=== PATIENT | male | born 1940 | race Caucasian/White ===

== ENCOUNTER → 2017-03-25 | Outpatient (CLI) | payer MEDICARE, OTHER | END | disposition home or self-care (01) | LOC: LAB.O 14:06 | PROVIDERS: ATTEND Orthopaedic Surgery | DX: M25.551 Pain in right hip (principal); M16.11 Unilateral primary osteoarthritis, right hip; Z01.812 Encounter for preprocedural laboratory examination; Z96.642 Presence of left artificial hip joint ==

== ENCOUNTER → 2017-07-18 | Outpatient (CLI) | payer MEDICARE, OTHER | END | disposition home or self-care (01) | LOC: GMAJ 19:38 | PROVIDERS: ATTEND Family Medicine | DX: Z12.5 Encounter for screening for malignant neoplasm of prostate (principal) ==

== ENCOUNTER 2017-08-01 08:33 | Emergency (ER) | payer MEDICARE, OTHER ==
--- NOTE | 2017-08-01 08:45 | ED.PDOC ---
History of Present Illness - General Chief Complaint: Chest Pain/MT Stated Complaint: CHEST PAIN Time Seen by Provider: 08/01/17 08:39 Source: patient Exam Limitations: no limitations Additional Information: ONSET 0500. - History of Present Illness Initial Comments: SUBSTERNAL, NO RADIATION, PRESSURE Severity: moderate Improving Factors: nothing Worsening Factors: nothing Associated Symptoms: diaphoresis, nausea/vomiting, shortness of breath Allergies/Adverse Reactions: Allergies NO KNOWN ALLERGY Allergy (Verified 08/01/17 08:46) Review of Systems - Review of Systems Constitutional: Denies: chills, fever EENTM: States: no symptoms reported Respiratory: States: short of breath. Denies: cough Cardiology: States: chest pain. Denies: syncope Gastrointestinal/Abdominal: States: nausea. Denies: abdominal pain, vomiting Genitourinary: States: no symptoms reported Musculoskeletal: States: no symptoms reported Skin: States: no symptoms reported Neurological: States: no symptoms reported Endocrine: States: no symptoms reported Past Medical History (General) - Patient Medical History Hx Cardiac Disorders: No Hx Congestive Heart Failure: No Hx Hypertension: No Hx Diabetes: No - Social History Hx Tobacco Use: No Hx Alcohol Use: No Family Medical History - Family History Mother Family History: Unknown Physical Exam - Physical Exam General Appearance: No apparent distress, Other - OBESE Eye Exam: bilateral normal Ears, Nose, Throat: normal ENT inspection Neck: non-tender, full range of motion, supple Respiratory: lungs clear, normal breath sounds, no respiratory distress Cardiovascular/Chest: normal peripheral pulses, regular rate, rhythm, bradycardia Gastrointestinal/Abdominal: normal bowel sounds, non tender, soft, no organomegaly, other - REDUCABLE UMBILICAL HERNIA Back Exam: normal inspection, no CVA tenderness Extremity: normal range of motion, non-tender Neurologic: alert, normal mood/affect, oriented x 3 Skin Exam: normal color, warm/dry Lymphatic: no adenopathy Progress - Progress Progress: 08/01/17 0850 D/W DR THAPA AGREES WITH PLAN REQ PT TRANSFER TO ER. D/W DR OLSON , AGREES TO ACCEPT PT. 910: TNKASE INFUSING 940: PT IMPROVED, STILL WITH MINIMAL PAIN 08/01/17 10:00 CURRENTLY PAIN FREE. VSS 08/01/17 10:15 [facility] HERE - EKG/XRAY/CT EKG: Elfego - RATE 59, NL AXIS, 1ST DEGREE AV BLOCK, ACUTE ANT/SEPTAL MT. NO OLD FOR COMPARISON. , Sinus XRAY: chest - NEG PER RADIOLOGY Departure - Departure Clinical Impression: STEMI (ST elevation myocardial infarction) Qualifiers: Involved coronary artery: unspecified coronary artery Qualified Code(s): I21.3 - ST elevation (STEMI) myocardial infarction of unspecified site Time of Disposition: 10:10 Disposition: Transfer to Hospital Condition: Serious Departure Forms: ED Discharge - Pt. Copy, Patient Portal Self Enrollment Instructions: DI for Chest Pain Referrals: Lawson Jenkins MD [Primary Care Provider] - 1-2 Weeks Critical Care Note - Critical Care Note Total Time (mins): 90 Comments: EVENT: STEMI FINDINGS: ST ELEVATION V1,2,3,4 SYSTEMS AT RISK: CARDIOVASCULAR TIME: 90 MINUTES ORDERS: 15 DOCUMENTATION: 15 CONSULTATION: 10 REVIEW OF LAB AND XRAY: 10 DIRECT PATIENT CARE: 40
[2017-08-01] MEDS ORDERED: TENECTEPLASE 50 MG VIAL ONE (08:53)
[2017-08-01] MEDS ORDERED: SODIUM CHLORIDE 0.9% (FLUSH) 10 ML SYG IV PRN (08:53)
[2017-08-01] MEDS ORDERED: CLOPIDOGREL 75 MG TAB PO ONE (08:58)
[2017-08-01] MEDS ORDERED: MORPHINE SULFATE INJ 10 MG/ML VIAL IV ONE (08:59)
[2017-08-01] MEDS ORDERED: SODIUM CHLORIDE 0.9% 1000ML 1,000 ML ONE (08:59)
[2017-08-01] MEDS ORDERED: TENECTEPLASE 50 MG VIAL IV ONE (09:03)
[2017-08-01] MEDS ORDERED: HEPARIN PREMIX 25,000 UNITS in PREMIX BAG 1 BAG IVS SCH (09:15)
[2017-08-01] MEDS ORDERED: HEPARIN PREMIX 500 ML ONE (09:28)
--- NOTE | 2017-08-01 09:32 | RAD ---
Study: Single Frontal View of the Chest. Indication:CP Comparison: None. Impression: Mild cardiomegaly. Lungs clear. No acute osseous abnormality. Electronically signed by: Bebeto Bryna MD 08/01/2017 9:31 AM [facility]
[2017-08-01 10:29] VITALS: BP 142/88; TEMP 97.3; O2SAT 99
== END 2017-08-01 10:07 | disposition short-term general hospital (02) ==
LOC: ER 08:33
DX: I21.09 ST elevation (STEMI) myocardial infarction involving other coronary artery of anterior wall (principal); I44.0 Atrioventricular block, first degree
CPT/HCPCS: 71010; 80048; 82550; 82553; 83880; 84484; 85025; 85610; 85730; 93005; 94760; J1644; J2270; J3101; J7030